=== PATIENT | male | born 1960 | race Caucasian/White ===

== ENCOUNTER 2020-05-20 10:39 | Emergency (ER) | payer MEDICAID ==
[~2020-05-20] VITALS: Ht 177.8 cm; Wt 112.5 kg
[2020-05-20 12:14] LABS: BASOPHILS # (AUTO) 0.1 X10'3 (0-0.2); BASOPHILS % (AUTO) 0.8 % (0-1); EOSINOPHILS # (AUTO) 0.2 X10'3 (0-0.9); EOSINOPHILS % (AUTO) 2.6 % (0-6); HEMATOCRIT 46.7 % (42.0-52.0); HEMOGLOBIN 15.9 g/dl (14.0-17.9); LYMPHOCYTES % (AUTO) 25.9 % (21-51); MEAN CORPUSCULAR HEMOGLOBIN 30.7 PG (27.0-31.0); MEAN CORPUSCULAR VOLUME 90.2 FL (78-98); MEAN PLATELET VOLUME 7.1 FL (7.4-10.4); MONOCYTES # (AUTO) 0.8 X10'3 (0-0.9); MONOCYTES % (AUTO) 10.5 % (2-12); NEUTROPHILS # (AUTO) 4.6 X10'3 (1.8-7.7); NEUTROPHILS % (AUTO) 60.2 % (42-75); PLATELET COUNT 291 X10'3 (140-440); RED BLOOD COUNT 5.18 X10'6 (4.70-6.10); RED CELL DISTRIBUTION WIDTH 14.1 % (11.5-14.5); WHITE BLOOD COUNT 7.7 X10'3 (4.5-11.0)
[2020-05-20 12:28] LABS: ALANINE AMINOTRANSFERASE 40 U/L (12-78); ALBUMIN 3.6 G/DL (3.4-5.0); ALKALINE PHOSPHATASE 101 IU/L (46-116); ANION GAP 9 (8-16); ASPARTATE AMINO TRANSFERASE 26 U/L (10-37); BILIRUBIN,TOTAL 0.3 MG/DL (0.1-1.0); BLOOD UREA NITROGEN 11 MG/DL (7-18); BUN/CREATININE RATIO 12.5 (5.4-32.0); CALCIUM 8.6 MG/DL (8.5-10.1); CHLORIDE 106 MMOL/L (99-107); CREATININE 0.88 MG/DL (0.60-1.10); GLUCOSE 116 MG/DL (70-104); POTASSIUM 3.8 MMOL/L (3.5-5.1); SODIUM 141 MMOL/L (135-145); TOTAL CARBON DIOXIDE 25.9 MMOL/L (24-32); TOTAL PROTEIN 7.2 G/DL (6.4-8.2); eGFR 88 ML/MIN
[2020-05-20] MEDS ORDERED: iohexol 300mg/ml 100ml inj. ONE (12:43)
[2020-05-20] MEDS ORDERED: ATOR80TA PO (15:28)
[2020-05-20] MEDS ORDERED: BUPR150T14 PO (15:28)
[2020-05-20] MEDS ORDERED: AMLO2.5T2 PO (15:28)
[2020-05-20] MEDS ORDERED: MELO7.5T12 PO (15:28)
[2020-05-20] MEDS ORDERED: hydrALAZINE 20mg/ml inj. IV PRN (16:05)
[2020-05-20] MEDS ORDERED: morphine 2 MG/ML inj. syringe IV PRN (16:05)
[2020-05-20] MEDS ORDERED: ringers solution, lacted 1,000 ML IV SCH (16:05)
[2020-05-20] MEDS ORDERED: fentaNYL/PF 50MCG/1 ML 2ML syringe IV PRN (16:05)
[2020-05-20] MEDS ORDERED: morphine 4 MG/ML inj SYRINge IV PRN (16:05)
[2020-05-20] MEDS ORDERED: ondansetron/PF 4mg/2ml inj IV PRN (16:05)
[2020-05-20] MEDS ORDERED: labetalol 20mg/4ml (5mg/ml) syringe IV PRN (16:05)
[2020-05-20] MEDS ORDERED: BUPIVAcaine/PF 2.5 mg/ml (0.25%) 30ml vial ONE (16:25)
[2020-05-20] MEDS ORDERED: fentaNYL/PF 50MCG/1 ML 2ML syringe ONE (16:50)
[2020-05-20] MEDS ORDERED: propofol inj 20 ML IV ONE (16:51)
[2020-05-20] MEDS ORDERED: LIDOcaine 2% (20mg/ml) 5ml vial ONE (16:51)
[2020-05-20] MEDS ORDERED: sevoflurane 250ml liquid IH ONE (17:00)
[2020-05-20] MEDS ORDERED: ondansetron/PF 4mg/2ml inj ONE (17:00)
[2020-05-20] MEDS ORDERED: ceFAZolin 1000mg inj ONE ×2 (17:11)
[2020-05-20] MEDS ORDERED: dexamethasone sod phosphate 4mg/ml inj. ONE (17:12)
[2020-05-20 17:35] VITALS: BP 157/102
--- NOTE | 2020-05-20 17:35 | NUR ---
Received from OR via BED, accompanied by Anesthesiologist. DR DAIGLE and report given by Anesthesiolgist. PATIENT WAKING UP, NO S/S OF PAIN, V/S WNL, SCD ON, 20G PIV LUE, DRESSING TO ABDOMEN CDI
[2020-05-20] MEDS: fentaNYL/PF 50MCG/1 ML 2ML syringe IV PRN ×2 (17:39→17:47)
[2020-05-20 17:45] VITALS: BP 158/107
[2020-05-20 17:55] VITALS: BP 146/92
[2020-05-20 18:05] VITALS: BP 149/92
[2020-05-20 18:15] VITALS: BP 154/95
[2020-05-20 18:25] VITALS: BP 151/93
--- NOTE | 2020-05-20 18:25 | NUR ---
PATIENT A&OX4, 2-09/18 PAIN, V/S WNL, SCD ON, 20G PIV ALCIDESE D/C, DRESSING TO ABDOMEN CDI. . I HAVE REVIEWED D/C INSTRUCTIONS. PATIENT TAKEN BY WHEELCHAIR WHERE PATIENT WAS TAKEN HOME WITH ALL BELONGINGS. FAMILY GAVE PATIENT TRANSPORT HOME.
[2020-05-20] MEDS ORDERED: buPROPion SR 150mg tablet PO SCH (20:00)
[2020-05-20] MEDS ORDERED: non-formulary drug (Meloxicam (Mobic) 1 TAB) PO SCH (20:00)
[2020-05-21] MEDS ORDERED: amLODIPine 2.5mg tablet PO SCH (08:00)
[2020-05-21] MEDS ORDERED: atorvastatin 20mg tablet PO SCH (08:00)
== END 2020-05-20 18:25 | disposition home or self-care (01) ==
LOC: ER 10:40
DX: L02.211 Cutaneous abscess of abdominal wall (principal); Z79.899 Other long term (current) drug therapy; Z86.73 Personal history of transient ischemic attack (TIA), and cerebral infarction without residual deficits
CPT/HCPCS: 10060; 36415; 74177; 80053; 83605; 84145; 85025; 87040; 87070; 87075; 87077; 87102; 87186; 96374; 99285; J0690; J1100; J2001; J2405; J2704; J3010; J3490; Q9967; 96365; A4215; A4618; A6407; A6449; A7000

== ENCOUNTER 2020-06-11 12:40 | Outpatient (CLI) | payer MEDICAID ==
[~2020-06-11 12:40] MED LIST: AMLO2.5T2 PO; ATOR80TA PO; BUPR150T14 PO; MELO7.5T12 PO
[2020-06-11] MEDS ORDERED: LIDOcaine 2% 5ml jelly ONE (13:43)
[2020-06-11] MEDS ORDERED: hydrocortisone 1% cream 28gm TP ONE (13:50)
== END 2020-06-11 23:59 | disposition home or self-care (01) ==
LOC: WOUND CARE 12:40 → EDSTATUS 13:20 → WOUND CARE 23:59
PROVIDERS: ATTEND Nurse Practitioner
DX: T81.89XA Other complications of procedures, not elsewhere classified, initial encounter (principal); L02.211 Cutaneous abscess of abdominal wall; I10 Essential (primary) hypertension; E78.5 Hyperlipidemia, unspecified; E66.9 Obesity, unspecified; H26.9 Unspecified cataract; M19.90 Unspecified osteoarthritis, unspecified site; F32.9 Major depressive disorder, single episode, unspecified; Z68.34 Body mass index [BMI] 34.0-34.9, adult; Z86.718 Personal history of other venous thrombosis and embolism; Z86.73 Personal history of transient ischemic attack (TIA), and cerebral infarction without residual deficits; Z79.899 Other long term (current) drug therapy; Y83.8 Other surgical procedures as the cause of abnormal reaction of the patient, or of later complication, without mention of misadventure at the time of the procedure; Y92.234 Operating room of hospital as the place of occurrence of the external cause
CPT/HCPCS: 11042; 87070; 87075; 87077; 87186

== ENCOUNTER 2020-06-18 09:09 | Outpatient (CLI) | payer MEDICAID | END 2020-06-18 23:59 | disposition home or self-care (01) | LOC: WOUND CARE 09:09 | PROVIDERS: ATTEND Nurse Practitioner | DX: T81.89XD Other complications of procedures, not elsewhere classified, subsequent encounter (principal); L98.412 Non-pressure chronic ulcer of buttock with fat layer exposed; E78.5 Hyperlipidemia, unspecified; I10 Essential (primary) hypertension; E66.9 Obesity, unspecified; H26.9 Unspecified cataract; M19.90 Unspecified osteoarthritis, unspecified site; F32.9 Major depressive disorder, single episode, unspecified; Z68.34 Body mass index [BMI] 34.0-34.9, adult; Z79.899 Other long term (current) drug therapy; Z86.718 Personal history of other venous thrombosis and embolism; Z86.73 Personal history of transient ischemic attack (TIA), and cerebral infarction without residual deficits; Y83.8 Other surgical procedures as the cause of abnormal reaction of the patient, or of later complication, without mention of misadventure at the time of the procedure | CPT/HCPCS: G0463 ==